=== PATIENT | female | born 1975 | race Caucasian/White ===

== ENCOUNTER 2018-10-11 23:06 | Emergency (ER) | payer OTHER ==
[~2018-10-11] VITALS: Ht 160 cm; Wt 79.4 kg
[2018-10-11 23:24] VITALS: Ht 160 cm; Wt 79.4 kg
[2018-10-12 00:43] VITALS: BP 135/71
== END 2018-10-12 00:43 | disposition home or self-care (01) ==
LOC: ED 23:06
DX: T78.40XA Allergy, unspecified, initial encounter (principal); R09.89 Other specified symptoms and signs involving the circulatory and respiratory systems; I10 Essential (primary) hypertension; E11.9 Type 2 diabetes mellitus without complications; X58.XXXA Exposure to other specified factors, initial encounter